=== PATIENT | female | born 1975 | race Caucasian/White ===

== ENCOUNTER 2021-01-03 14:10 | Outpatient (CLI) | payer OTHER, SELFPAY ==
--- NOTE | 2021-01-03 14:19 | MM_ITS ---
WS: [id number] SCREENING DIGITAL MAMMOGRAM WITH CAD HISTORY: SCREENING COMPARISON: None available. Bilateral CC and MLO views submitted. Computer aided detection analyzed. Breast composition: There are scattered areas of fibroglandular density. There is scattered asymmetri es in the anterior medial LEFT breast. No distortion. These findings are asymmetric to the RIGHT. MM/[place] [id number] IMPRESSION: BI-RADS: 0-Incomplete: Need additional imaging evaluation FOLLOW UP: Need Additional Imaging LEFT breast: Spot compression views (CC and MLO). True ML. Ultrasound to follow if abnormality persists.
== END 2021-01-03 14:11 | disposition home or self-care (01) ==
LOC: RADSHAW 14:16
PROVIDERS: PCP Registered Nurse; Visit Provider Registered Nurse
DX: Z12.31 Encounter for screening mammogram for malignant neoplasm of breast (principal)
CPT/HCPCS: 77067

== ENCOUNTER 2021-03-11 10:16 | Outpatient (CLI) | payer OTHER, SELFPAY ==
--- NOTE | 2021-03-11 10:23 | US_ITS ---
WS: [id number] ADDITIONAL VIEWS LEFT MAMMOGRAM LEFT BREAST ULTRASOUND HISTORY: BREAST Asymmetry; abnormal MAMMOGRAM COMPARISON: 01/03/2021 LEFT MAMMOGRAM: Spot compression views and true ML. Asymmetries in the medial inferior LEFT breast nearly completely resolved with additional imaging. Se en only on the LEFT CC projection at a middle depth just medial to the nipple is a very subtle asymme try which will be further evaluated by ultrasound. LEFT BREAST ULTRASOUND 2-D and color Doppler imaging submitted. No abnormality is noted in the medial inferior LEFT breast. There is no distortion or mass identified . US/US breast LT limited* [id number] IMPRESSION: BI-RADS: 2-Benign FOLLOW UP: 1 Year Follow-up
== END 2021-03-11 10:17 | disposition home or self-care (01) ==
LOC: RADSHAW 10:20
PROVIDERS: PCP Registered Nurse; Visit Provider Registered Nurse
DX: N64.89 Other specified disorders of breast (principal); R92.8 Other abnormal and inconclusive findings on diagnostic imaging of breast
CPT/HCPCS: 76642; 77065